=== PATIENT | female | born 1945 | race African-American/Black ===

== ENCOUNTER → 2023-12-03 09:37 | Outpatient (REF) | payer MEDICARE, SELFPAY | LOC: HWRAD 09:37 | PROVIDERS: ATTENDING PHYSICIAN Family Medicine | DX: M19.031 Primary osteoarthritis, right wrist (principal); M47.812 Spondylosis without myelopathy or radiculopathy, cervical region | CPT/HCPCS: 72050; 73110 ==

== ENCOUNTER → 2024-09-23 10:54 | Outpatient (REF) | payer MEDICARE, SELFPAY | LOC: HWRAD 10:54 | PROVIDERS: ATTENDING PHYSICIAN Family Medicine | DX: M19.042 Primary osteoarthritis, left hand (principal) | CPT/HCPCS: 73130 ==

== ENCOUNTER → 2025-02-01 11:55 | Outpatient (REF) | payer MEDICARE, SELFPAY | LOC: RAD 11:55 | PROVIDERS: ATTENDING PHYSICIAN Family Medicine | DX: M15.9 Polyosteoarthritis, unspecified (principal); W19.XXXD Unspecified fall, subsequent encounter; M25.562 Pain in left knee; E44.1 Mild protein-calorie malnutrition | CPT/HCPCS: 71046; 73564 ==

== ENCOUNTER → 2025-02-10 10:51 | Outpatient (REF) | payer MEDICARE, SELFPAY | LOC: RAD 10:51 | PROVIDERS: ATTENDING PHYSICIAN Family Medicine | DX: E44.1 Mild protein-calorie malnutrition (principal) | CPT/HCPCS: 74177; Q9967 ==

== ENCOUNTER → 2025-07-07 14:30 | Outpatient (REF) | payer MEDICARE, SELFPAY | LOC: HWRAD 14:30 | PROVIDERS: ATTENDING PHYSICIAN Family Medicine | DX: Z78.0 Asymptomatic menopausal state (principal) | CPT/HCPCS: 77080 ==

== ENCOUNTER → 2025-09-07 15:57 | Outpatient (REF) | payer MEDICARE, SELFPAY | LOC: HWRCS 15:57 | PROVIDERS: ATTENDING PHYSICIAN Family Medicine | DX: I50.9 Heart failure, unspecified (principal) | CPT/HCPCS: 93306 ==